=== PATIENT | male | born 1950 | race Caucasian/White ===

== ENCOUNTER 2017-04-02 17:29 | Emergency (ER) | payer OTHER ==
[~2017-04-02] VITALS: Ht 182.9 cm; Wt 90.5 kg
[~2017-04-02 17:29] MED LIST: PENI500T PO; TRAM50 PO; Z.0.UNKNOWN
[2017-04-02 18:11] VITALS: BP 157/75; PULSE 80; RESP 16; TEMP 98.6; O2SAT 95
== END 2017-04-02 21:25 | disposition left against medical advice (07) ==
LOC: PHED 17:29
DX: Z53.9 Procedure and treatment not carried out, unspecified reason (principal)
CPT/HCPCS: 99281